=== PATIENT | male | born 1985 | race Hispanic/Latino ===

== ENCOUNTER 2017-11-04 10:49 | Emergency (ER) | payer BC ==
[~2017-11-04] VITALS: Ht 185.4 cm; Wt 90.7 kg
[2017-11-04] MEDS ORDERED: METFORMIN HCL500 MG PO (11:30)
[2017-11-04] MEDS ORDERED: IBUPROFEN400 MG PO (11:56)
[2017-11-04] MEDS ORDERED: ACETAMINOPHEN325 M1 PO (11:59)
== END 2017-11-04 12:56 | disposition home or self-care (01) ==
LOC: FSED 10:49
DX: G89.11 Acute pain due to trauma (principal); S92.242D Displaced fracture of medial cuneiform of left foot, subsequent encounter for fracture with routine healing; Y93.89 Activity, other specified

== ENCOUNTER 2018-06-14 14:29 | Emergency (ER) | payer BC ==
[~2018-06-14] VITALS: Ht 185.4 cm; Wt 90.7 kg
[~2018-06-14 14:29] MED LIST: ACETAMINOPHEN325 M1 PO; IBUPROFEN400 MG PO; METFORMIN HCL500 MG PO
--- NOTE | 2018-06-14 16:50 | Diagnostic Imaging Report ---
LEFT ELBOW X-RAY - 3 VIEWS HISTORY: \S\heard pop nad cant move \[id number] \[id number] COMPARISON: None available. FINDINGS: Bones: No acute displaced fracture. Osseous alignment is within normal limits. Joints: The joint spaces are well-maintained. Soft tissues: The soft tissues appear unremarkable. IMPRESSION: No acute radiographic abnormality. Signed by: Dr. Kimberley Phoenix M.D. on 06/14/2018 4:47 PM
--- NOTE | 2018-06-14 16:51 | Diagnostic Imaging Report ---
LEFT SHOULDER X-RAY - 2 VIEWS HISTORY: \S\heard pop nad cant move \[id number] \S\[id number] COMPARISON: None available. FINDINGS: Bones: No acute displaced fracture. Osseous alignment is within normal limits. Joints: The joint spaces are well-maintained. Soft tissues: The soft tissues appear unremarkable. IMPRESSION: No acute radiographic abnormality. Signed by: Dr. Kimberley Phoenix M.D. on 06/14/2018 4:48 PM
[2018-06-14] MEDS ORDERED: DIAZEPAM 5 MG TAB PO STA (18:03)
[2018-06-14] MEDS ORDERED: HYDROCODONE/APAP 10MG-325MG TAB PO ONE (18:15)
== END 2018-06-14 20:00 | disposition home or self-care (01) ==
LOC: ER 14:29
DX: S46.212A Strain of muscle, fascia and tendon of other parts of biceps, left arm, initial encounter (principal); M77.8 Other enthesopathies, not elsewhere classified; W10.8XXA Fall (on) (from) other stairs and steps, initial encounter; Y99.0 Civilian activity done for income or pay
CPT/HCPCS: 99283

== ENCOUNTER 2021-03-02 14:32 | Inpatient (IN) | payer SELFPAY ==
[~2021-03-02] VITALS: Ht 185.4 cm; Wt 86.2 kg
[2021-03-02] MEDS ORDERED: SODIUM CHLORIDE 0.9% 1000ML 1,000 ML IV STA ×2 (14:52)
[2021-03-02] MEDS ORDERED: MORPHINE SULFATE INJ 4 MG/ML INJ 1ML IV STA (14:52)
[2021-03-02] MEDS ORDERED: PANTOPRAZOLE 40 MG 10ML VIAL IV STA (14:52)
[2021-03-02] MEDS ORDERED: ONDANSETRON HCL INJ 2MG/ML 2ML 2 MG/ML VIAL IV ONE (15:00)
[2021-03-02] MEDS ORDERED: IOPAMIDOL 370 MG/ML 200 ML INFUS..BTL INJ ONE (15:17)
[2021-03-02] MEDS ORDERED: SODIUM CHLORIDE 0.9% 50ML 50 ML ONE (15:17)
[2021-03-02] MEDS ORDERED: ONDANSETRON HCL INJ 2MG/ML 2ML 2 MG/ML VIAL ONE (15:29)
[2021-03-02] MEDS ORDERED: MORPHINE SULFATE INJ 4 MG/ML INJ 1ML ONE ×2 (15:29→18:35)
[2021-03-02] MEDS ORDERED: SODIUM CHLORIDE 0.9% 1000ML 2,000 ML ONE (15:29)
[2021-03-02] MEDS ORDERED: PANTOPRAZOLE 40 MG 10ML VIAL ONE (15:29)
[2021-03-02] MEDS: SODIUM CHLORIDE 0.9% 1000ML 1,000 ML IV SCH ×3 (16:30→23:38)
[2021-03-02] MEDS ORDERED: ONDANSETRON HCL INJ 2MG/ML 2ML 2 MG/ML VIAL IV PRN (16:30)
[2021-03-02] MEDS ORDERED: ZOLPIDEM TARTRATE 5 MG TAB PO PRN (16:30)
[2021-03-02] MEDS ORDERED: DIPHENHYDRAMINE HCL INJ 50 MG/ML VIAL IV PRN (16:30)
[2021-03-02] MEDS ORDERED: ENALAPRILAT IV INJ 1.25 MG/ML VIAL IV PRN (16:30)
[2021-03-02] MEDS ORDERED: FAMOTIDINE 20 MG/2 ML VIAL IV SCH (17:00)
[2021-03-02] MEDS: MORPHINE SULFATE INJ 4 MG/ML INJ 1ML IV PRN ×2 (18:28→22:30)
[2021-03-02 18:55] VITALS: BP 153/99
[2021-03-02 19:45] VITALS: BP 153/99
[2021-03-02] MEDS ORDERED: KETOROLAC TROMETHAMINE 30 MG/ML VIAL IV ONE (19:45)
[2021-03-02 20:41] VITALS: BP 143/99
[2021-03-02] MEDS: FAMOTIDINE 20 MG/2 ML VIAL IV SCH (21:30)
[2021-03-02 22:20] VITALS: BP 143/99
[2021-03-03] VITALS (8 sets, daily range): BP systolic 115–140; BP diastolic 69–102
[2021-03-03] MEDS: KETOROLAC TROMETHAMINE 30 MG/ML VIAL IV SCH ×5 (00:07→23:55)
[2021-03-03] MEDS ORDERED: ZOLPIDEM TARTRATE 5 MG TAB PO PRN (00:45)
[2021-03-03] MEDS ORDERED: SIMETHICONE 80 MG CHEW PO PRN (00:45)
[2021-03-03] MEDS ORDERED: ACETAMINOPHEN 325 MG TAB PO PRN (00:45)
[2021-03-03] MEDS ORDERED: HYDRALAZINE HCL 20 MG/ML VIAL IV PRN (00:45)
[2021-03-03] MEDS ORDERED: POLYETHYLENE GLYCOL 3350 17 GM PACK PO PRN (00:45)
[2021-03-03] MEDS ORDERED: POTASSIUM CHLORIDE 20 MEQ TAB CR PO PRN (00:45)
[2021-03-03] MEDS ORDERED: ALBUTEROL/IPRATROPIUM 3 ML NEB NEB PRN (00:45)
[2021-03-03] MEDS ORDERED: DEXTROSE 50% SYRINGE 50 ML IV PRN (00:45)
[2021-03-03] MEDS ORDERED: MELATONIN 5 MG TABLET PO PRN (01:00)
[2021-03-03] MEDS: PANTOPRAZOLE 40 MG 10ML VIAL IV SCH ×3 (01:45→23:55)
[2021-03-03] MEDS: MORPHINE SULFATE INJ 4 MG/ML INJ 1ML IV PRN ×4 (02:30→20:14)
[2021-03-03] MEDS: SODIUM CHLORIDE 0.9% 1000ML 1,000 ML IV SCH ×3 (02:30→10:26)
[2021-03-03] MEDS ORDERED: MORPHINE SULFATE INJ 2 MG/ML SYR ONE (08:02)
[2021-03-03] MEDS: ONDANSETRON HCL INJ 2MG/ML 2ML 2 MG/ML VIAL IV PRN ×3 (08:10→20:14)
[2021-03-03] MEDS: FAMOTIDINE 20 MG/2 ML VIAL IV SCH ×2 (08:13→21:30)
[2021-03-03 09:26] LABS: BASOPHILS % 0.2 % (0.0-1.0); EOSINOPHILS # (AUTO) 0.1 (0.0-0.4); EOSINOPHILS % 0.4 % (0.0-6.0); HEMATOCRIT 45.2 % (38.2-49.6); HEMOGLOBIN 14.9 g/dL (14.0-18.0); LYMPHOCYTES % 12.3 % (18.0-39.1); MEAN CORPUSCULAR HEMOGLOBIN 30.3 pg (28-32); MEAN CORPUSCULAR VOLUME 92.1 fL (81-99); MONOCYTES # (AUTO) 1.3 (0.2-0.8); MONOCYTES % 7.7 % (4.4-11.3); NEUTROPHILS # (AUTO) 13.1 (2.1-6.9); NEUTROPHILS % 78.6 % (38.7-80.0); PLATELET COUNT 273 x10e3/uL (140-360); RED BLOOD COUNT 4.91 x10e6/uL (4.3-5.7); RED CELL DISTRIBUTION WIDTH 15.5 % (11.7-14.4)
[2021-03-03 09:53] LABS: ALANINE AMINOTRANSFERASE 30 IU/L (0-55); ALKALINE PHOSPHATASE 41 IU/L (40-150); AMYLASE 61 U/L (25-125); ANION GAP 11.1 mmol/L (8-16); BLOOD UREA NITROGEN 13 mg/dL (7-26); BUN/CREATININE RATIO 14 (6-25); CALCIUM 7.5 mg/dL (8.4-10.2); CARBON DIOXIDE 25 mmol/L (22-29); CHLORIDE 103 mmol/L (98-107); CREATININE, SERUM 0.96 mg/dL (0.72-1.25); EST GLOMERULAR FILTRATION RATE > 60 ML/MIN (60-); GLUCOSE 110 mg/dL (74-118); LIPASE 49 U/L (8-78); POTASSIUM 4.1 mmol/L (3.5-5.1); SODIUM 135 mmol/L (136-145)
[2021-03-03] MEDS: DEXTROSE 5%/0.9% SOD CHL 1,000 ML IV SCH ×3 (13:30→21:30)
[2021-03-03] MEDS: ENOXAPARIN SOD INJ 40 MG/0.4 ML SYR SC SCH (17:00)
[2021-03-04] VITALS (8 sets, daily range): BP systolic 103–128; BP diastolic 65–99
[2021-03-04] MEDS: MORPHINE SULFATE INJ 4 MG/ML INJ 1ML IV PRN ×5 (00:43→18:02)
[2021-03-04] MEDS: ONDANSETRON HCL INJ 2MG/ML 2ML 2 MG/ML VIAL IV PRN ×2 (00:45→23:35)
[2021-03-04] MEDS: DEXTROSE 5%/0.9% SOD CHL 1,000 ML IV SCH ×3 (03:34→18:02)
[2021-03-04 05:42] LABS: BASOPHILS % 0.2 % (0.0-1.0); EOSINOPHILS # (AUTO) 0.1 (0.0-0.4); EOSINOPHILS % 0.8 % (0.0-6.0); HEMATOCRIT 43.7 % (38.2-49.6); HEMOGLOBIN 14.2 g/dL (14.0-18.0); LYMPHOCYTES # (AUTO) 1.4 (1.0-3.2); MEAN CORPUSCULAR HEMOGLOBIN 29.5 pg (28-32); MEAN CORPUSCULAR HGB CONC 32.5 g/dL (31-35); MEAN CORPUSCULAR VOLUME 90.9 fL (81-99); MONOCYTES # (AUTO) 0.8 (0.2-0.8); MONOCYTES % 7.8 % (4.4-11.3); NEUTROPHILS # (AUTO) 7.6 (2.1-6.9); NEUTROPHILS % 76.3 % (38.7-80.0); PLATELET COUNT 248 x10e3/uL (140-360); RED BLOOD COUNT 4.81 x10e6/uL (4.3-5.7); RED CELL DISTRIBUTION WIDTH 15.6 % (11.7-14.4)
[2021-03-04] MEDS: KETOROLAC TROMETHAMINE 30 MG/ML VIAL IV SCH ×4 (05:58→23:24)
[2021-03-04 06:21] LABS: ALANINE AMINOTRANSFERASE 22 IU/L (0-55); ALBUMIN 2.6 g/dL (3.5-5.0); ALBUMIN/GLOBULIN RATIO 0.9 (0.8-2.0); ALKALINE PHOSPHATASE 40 IU/L (40-150); ANION GAP 10.3 mmol/L (8-16); BLOOD UREA NITROGEN 9 mg/dL (7-26); BUN/CREATININE RATIO 10 (6-25); CALCIUM 7.1 mg/dL (8.4-10.2); CARBON DIOXIDE 25 mmol/L (22-29); CHLORIDE 105 mmol/L (98-107); CHOL/HDL RATIO 13.9 (3.9-4.7); CHOLESTEROL 153 MD/DL (0-199); EST GLOMERULAR FILTRATION RATE > 60 ML/MIN (60-); GLUCOSE 168 mg/dL (74-118); HDL CHOLESTEROL 11 MG/DL (40-60); LDL CHOLESTEROL 112 MG/DL (60-130); MAGNESIUM 1.9 MG/DL (1.3-2.1); POTASSIUM 4.3 mmol/L (3.5-5.1); SODIUM 136 mmol/L (136-145); TRIGLYCERIDES 152 MG/DL (0-149)
[2021-03-04] MEDS: FAMOTIDINE 20 MG/2 ML VIAL IV SCH ×3 (08:10→21:03)
[2021-03-04] MEDS: PANTOPRAZOLE 40 MG 10ML VIAL IV SCH (11:50)
[2021-03-04] MEDS: ENOXAPARIN SOD INJ 40 MG/0.4 ML SYR SC SCH (16:09)
[2021-03-04] MEDS ORDERED: MORPHINE SULFATE INJ 2 MG/ML SYR IV PRN (18:45)
[2021-03-05] MEDS: PANTOPRAZOLE 40 MG 10ML VIAL IV SCH ×2 (00:17→11:21)
[2021-03-05 01:16] VITALS: BP 127/80
[2021-03-05] MEDS: DEXTROSE 5%/0.9% SOD CHL 1,000 ML IV SCH ×2 (02:32→05:37)
[2021-03-05 05:28] VITALS: BP 129/78
[2021-03-05 05:36] LABS: AMYLASE 41 U/L (25-125); LIPASE 37 U/L (8-78)
[2021-03-05] MEDS: KETOROLAC TROMETHAMINE 30 MG/ML VIAL IV SCH ×2 (06:00→11:22)
[2021-03-05 07:50] VITALS: BP 127/92
[2021-03-05] MEDS: FAMOTIDINE 20 MG/2 ML VIAL IV SCH (07:51)
[2021-03-05 09:03] VITALS: BP 127/92
== END 2021-03-05 13:51 | disposition home or self-care (01) | DRG 440 ==
LOC: FSED 14:56 → ERHOLD 17:46 → MED/SURG 18:44
PROVIDERS: ADMIT Internal Medicine; ATTEND Internal Medicine
DX: K85.90 Acute pancreatitis without necrosis or infection, unspecified (principal); E11.9 Type 2 diabetes mellitus without complications; F10.10 Alcohol abuse, uncomplicated; Z87.891 Personal history of nicotine dependence; Z90.49 Acquired absence of other specified parts of digestive tract; Z83.3 Family history of diabetes mellitus; Z82.49 Family history of ischemic heart disease and other diseases of the circulatory system; Z20.822 Contact with and (suspected) exposure to COVID-19; Z79.84 Long term (current) use of oral hypoglycemic drugs
CPT/HCPCS: 36415; 74177; 80053; 80061; 80329; 82150; 82948; 83036; 83690; 83735; 85025; 99284; J1650; J1885; J2270; J2405; J7030; J7042; Q9967; U0002

== ENCOUNTER 2021-05-12 22:46 | Emergency (ER) | payer BC, OTHER ==
[~2021-05-12] VITALS: Ht 185.4 cm; Wt 86.2 kg
[2021-05-12] MEDS ORDERED: SODIUM CHLORIDE 0.9% 1000ML 1,000 ML IV ONE (23:00)
[2021-05-12 23:20] LABS: BASOPHILS % 0.4 % (0.0-1.0); EOSINOPHILS # (AUTO) 0.1 (0.0-0.4); EOSINOPHILS % 0.9 % (0.0-6.0); HEMATOCRIT 50.6 % (38.2-49.6); HEMOGLOBIN 16.5 g/dL (14.0-18.0); LYMPHOCYTES # (AUTO) 2.1 (1.0-3.2); MEAN CORPUSCULAR HEMOGLOBIN 29.2 pg (28-32); MEAN CORPUSCULAR HGB CONC 32.6 g/dL (31-35); MEAN CORPUSCULAR VOLUME 89.6 fL (81-99); MONOCYTES # (AUTO) 1.1 (0.2-0.8); MONOCYTES % 10.2 % (4.4-11.3); NEUTROPHILS # (AUTO) 7.1 (2.1-6.9); NEUTROPHILS % 67.6 % (38.7-80.0); PLATELET COUNT 306 x10e3/uL (140-360); RED BLOOD COUNT 5.65 x10e6/uL (4.3-5.7); RED CELL DISTRIBUTION WIDTH 14.4 % (11.7-14.4)
[2021-05-12 23:24] LABS: CLARITY,URINE CLEAR (CLEAR); COLOR,URINE YELLOW (YELLOW); KETONES,URINE NEGATIVE (NEGATIVE); LEUKOCYTE ESTERASE ,URINE NEGATIVE (NEGATIVE); NITRITE,URINE NEGATIVE (NEGATIVE); PROTEIN,URINE DIPSTICK 1+ (NEGATIVE); URINE UROBILINOGEN 0.2 mg/dL (0.2 - 1)
[2021-05-12 23:25] LABS: BACTERIA,URINE FEW /HPF; EPITHELIAL CELLS,URINE FEW /LPF; RBC,URINE 0-5 /HPF (0-5); WBC,URINE (MAN) 0-5 /HPF (0-5)
[2021-05-12 23:26] LABS: AMPHETAMINES SCREEN,URINE POSITIVE (NEGATIVE); PHENCYCLIDINE SCREEN,URINE NEGATIVE (NEGATIVE)
[2021-05-12 23:27] LABS: BENZODIAZEPINES SCREEN,URINE NEGATIVE (NEGATIVE)
[2021-05-12 23:37] LABS: ALBUMIN/GLOBULIN RATIO 1.4 (0.8-2.0); CREATININE, SERUM 1.67 mg/dL (0.72-1.25)
[2021-05-12 23:58] LABS: MUCUS,URINE MANY (RARE)
[2021-05-13] MEDS ORDERED: SODIUM CHLORIDE 0.9% 50ML 50 ML ONE (01:45)
[2021-05-13] MEDS ORDERED: IOPAMIDOL 370 MG/ML 200 ML INFUS..BTL INJ ONE (01:45)
[2021-05-13] MEDS ORDERED: SODIUM CHLORIDE 0.9% 1000ML 1,000 ML IV ONE (02:00)
[2021-05-13] MEDS ORDERED: SODIUM CHLORIDE 0.9% 1000ML 1,000 ML ONE (02:07)
== END 2021-05-13 02:58 | disposition home or self-care (01) ==
LOC: ER 22:55
DX: S50.02XA Contusion of left elbow, initial encounter (principal); R42 Dizziness and giddiness; W01.0XXA Fall on same level from slipping, tripping and stumbling without subsequent striking against object, initial encounter; Y93.01 Activity, walking, marching and hiking; Y92.34 Swimming pool (public) as the place of occurrence of the external cause; E11.65 Type 2 diabetes mellitus with hyperglycemia; R94.31 Abnormal electrocardiogram [ECG] [EKG]; Z87.19 Personal history of other diseases of the digestive system; F17.210 Nicotine dependence, cigarettes, uncomplicated
CPT/HCPCS: 36415; 70496; 71045; 72125; 73080; 73090; 73110; 80053; 80307; 80320; 81001; 82550; 82553; 82948; 84484; 85025; 93005; 99284; J7030 ×2; Q9967

== ENCOUNTER 2024-10-08 16:24 | Inpatient (IN) | payer OTHER ==
[~2024-10-08] VITALS: Ht 185.4 cm; Wt 86.2 kg
[2024-10-08] MEDS: KETOROLAC TROMETHAMINE 30 MG/ML VIAL IV STA (17:20)
[2024-10-08] MEDS: ONDANSETRON HCL INJ 2MG/ML 2ML 2 MG/ML VIAL IV STA (17:20)
[2024-10-08] MEDS: SODIUM CHLORIDE 0.9% 1000ML 1,000 ML IV SCH ×3 (17:21→19:49)
[2024-10-08] MEDS ORDERED: PROMETHAZINE HCL (IM) 25 MG/ML VIAL IM ONE (18:51)
[2024-10-08] MEDS ORDERED: HYDROMORPHONE 1MG/1ML INJ IV PRN (19:45)
[2024-10-08] MEDS: FENTANYL CITRATE/PF 100MCG/2 ML INJ IV ONE (19:48)
[2024-10-08] MEDS: PROMETHAZINE 25MG/ NS 50ML (IV) IV ONE (19:48)
[2024-10-08 19:59] VITALS: PULSE 51; RESP 18; TEMP 97.7
[2024-10-08 20:00] VITALS: BP 171/81; O2SAT 99
[2024-10-08] MEDS ORDERED: ACETAMINOPHEN 325 MG TAB PO PRN (21:30)
[2024-10-08] MEDS ORDERED: DEXTROSE 50% SYRINGE 50 ML IV PRN (21:45)
[2024-10-08] MEDS: HYDROMORPHONE 1MG/1ML INJ IV PRN (22:35)
[2024-10-08] MEDS: DEXTROSE 5%/0.9% SOD CHL 1,000 ML IV ONE (22:35)
[2024-10-08] MEDS: FAMOTIDINE 20 MG/2 ML VIAL IV STA (22:39)
[2024-10-08] MEDS: ONDANSETRON HCL INJ 2MG/ML 2ML 2 MG/ML VIAL IV PRN (22:39)
[2024-10-08] MEDS ORDERED: PROMETHAZINE HCL (IM) 25 MG/ML VIAL IM PRN (23:00)
[2024-10-08 23:33] VITALS: BP 183/106; PULSE 45; RESP 16; TEMP 98.2; O2SAT 97
[2024-10-08] MEDS: HYDRALAZINE HCL 20 MG/ML VIAL IV PRN (23:44)
[2024-10-09] VITALS (7 sets, daily range): BP systolic 140–178; BP diastolic 85–100; PULSE 44–108; RESP 18–20; TEMP 98.2–99; O2SAT 97–98
[2024-10-09] MEDS: DEXTROSE 5%/0.9% SOD CHL 1,000 ML IV SCH (06:00)
[2024-10-09] MEDS: INSULIN LISPRO 100 UNIT/1 ML 3ML VIAL SQ SCH (08:03)
[2024-10-09 08:07] LABS: BASOPHILS % 0.2 % (0.0-1.0); EOSINOPHILS # (AUTO) 0.1 (0.0-0.4); EOSINOPHILS % 0.6 % (0.0-6.0); HEMATOCRIT 49.5 % (38.2-49.6); HEMOGLOBIN 16.4 g/dL (14.0-18.0); LYMPHOCYTES # (AUTO) 0.9 (1.0-3.2); LYMPHOCYTES % 5.1 % (18.0-39.1); MEAN CORPUSCULAR HEMOGLOBIN 32.9 pg (28-32); MEAN CORPUSCULAR HGB CONC 33.1 g/dL (31-35); MEAN CORPUSCULAR VOLUME 99.4 fL (81-99); MONOCYTES # (AUTO) 1.3 (0.2-0.8); MONOCYTES % 6.8 % (4.4-11.3); NEUTROPHILS # (AUTO) 15.9 (2.1-6.9); NEUTROPHILS % 86.9 % (38.7-80.0); PLATELET COUNT 189 x10e3/uL (140-360); RED BLOOD COUNT 4.98 x10e6/uL (4.3-5.7); RED CELL DISTRIBUTION WIDTH 12.5 % (11.7-14.4); WHITE BLOOD COUNT 18.29 x10e3/uL (4.8-10.8)
[2024-10-09] MEDS: FAMOTIDINE 20 MG/2 ML VIAL IV SCH (08:13)
[2024-10-09 08:33] LABS: ALBUMIN 3.9 g/dL (3.5-5.0); ANION GAP 17.9 mmol/L (8-16); BILIRUBIN,DIRECT 0.4 mg/dL (0.0-0.5); CREATININE, SERUM 1.1 mg/dL (0.72-1.25); POTASSIUM 3.9 mmol/L (3.5-5.1); TOTAL PROTEIN 6.9 g/dL (6.5-8.1)
[2024-10-09] MEDS: LACTATED RINGER'S 1,000 ML INJ SCH (13:38)
[2024-10-09] MEDS: LORAZEPAM INJ 2 MG/ML VIAL IV PRN (16:10)
[2024-10-09] MEDS: ENOXAPARIN SOD INJ 40 MG/0.4 ML SYR SC SCH (20:51)
[2024-10-10 03:30] VITALS: BP 151/96; PULSE 111; RESP 20; TEMP 99.4; O2SAT 96
[2024-10-10 07:59] VITALS: BP 154/94; PULSE 54; RESP 18; TEMP 99.2; O2SAT 95
[2024-10-10 08:00] VITALS: BP 154/94; PULSE 54; RESP 18; TEMP 99.2; O2SAT 95
[2024-10-10] MEDS: KETOROLAC TROMETHAMINE 30 MG/ML VIAL IV ONE (11:46)
[2024-10-10 12:00] VITALS: BP 150/107; PULSE 77; RESP 20; TEMP 98.6; O2SAT 97
[2024-10-10 14:04] LABS: BASOPHILS % 0.2 % (0.0-1.0); EOSINOPHILS % 0.1 % (0.0-6.0); HEMATOCRIT 45.2 % (38.2-49.6); HEMOGLOBIN 14.8 g/dL (14.0-18.0); LYMPHOCYTES # (AUTO) 1.3 (1.0-3.2); LYMPHOCYTES % 8.4 % (18.0-39.1); MEAN CORPUSCULAR HEMOGLOBIN 32.7 pg (28-32); MEAN CORPUSCULAR HGB CONC 32.7 g/dL (31-35); MONOCYTES # (AUTO) 1.3 (0.2-0.8); MONOCYTES % 8.4 % (4.4-11.3); NEUTROPHILS # (AUTO) 12.7 (2.1-6.9); NEUTROPHILS % 82.6 % (38.7-80.0); PLATELET COUNT 161 x10e3/uL (140-360); RED BLOOD COUNT 4.52 x10e6/uL (4.3-5.7); RED CELL DISTRIBUTION WIDTH 12.6 % (11.7-14.4); WHITE BLOOD COUNT 15.32 x10e3/uL (4.8-10.8)
[2024-10-10] MEDS: BISACODYL 10 MG SUPP PR ONE (14:05)
[2024-10-10] MEDS: HYDROMORPHONE 2MG/ML IV PRN (14:05)
[2024-10-10 16:33] VITALS: BP 153/98; PULSE 89; RESP 18; TEMP 98.2; O2SAT 99
[2024-10-10 20:42] VITALS: BP 157/103; PULSE 82; RESP 20; TEMP 97.7; O2SAT 96
[2024-10-11] VITALS (8 sets, daily range): BP systolic 145–168; BP diastolic 91–108; PULSE 71–98; RESP 16–21; TEMP 97.6–98.9; O2SAT 95–99
[2024-10-11 01:10] LABS: BASOPHILS % 0.2 % (0.0-1.0); EOSINOPHILS % 0.1 % (0.0-6.0); HEMATOCRIT 42.5 % (38.2-49.6); HEMOGLOBIN 14.7 g/dL (14.0-18.0); LYMPHOCYTES # (AUTO) 1.1 (1.0-3.2); LYMPHOCYTES % 8.4 % (18.0-39.1); MEAN CORPUSCULAR HEMOGLOBIN 33.2 pg (28-32); MEAN CORPUSCULAR HGB CONC 34.6 g/dL (31-35); MONOCYTES % 7.8 % (4.4-11.3); NEUTROPHILS # (AUTO) 11.1 (2.1-6.9); NEUTROPHILS % 83.1 % (38.7-80.0); PLATELET COUNT 168 x10e3/uL (140-360); RED BLOOD COUNT 4.43 x10e6/uL (4.3-5.7); RED CELL DISTRIBUTION WIDTH 12.6 % (11.7-14.4); WHITE BLOOD COUNT 13.37 x10e3/uL (4.8-10.8)
[2024-10-11 01:40] LABS: ALBUMIN 3.4 g/dL (3.5-5.0); ANION GAP 16.4 mmol/L (8-16); BILIRUBIN,TOTAL 1.2 mg/dL (0.2-1.2); CALCIUM 9.7 mg/dL (8.4-10.2); CREATININE, SERUM 0.9 mg/dL (0.72-1.25); TOTAL PROTEIN 6.9 g/dL (6.5-8.1)
[2024-10-11 01:52] LABS: MEAN CORPUSCULAR VOLUME 95.9 fL (81-99); POTASSIUM 3.4 mmol/L (3.5-5.1)
[2024-10-11] MEDS ORDERED: IOPAMIDOL 370 MG/ML 100 ML INFUS..BTL INJ ONE (04:24)
[2024-10-11 05:59] LABS: BASOPHILS % 0.3 % (0.0-1.0); EOSINOPHILS % 0.2 % (0.0-6.0); HEMATOCRIT 41.6 % (38.2-49.6); HEMOGLOBIN 14.5 g/dL (14.0-18.0); LYMPHOCYTES # (AUTO) 1.2 (1.0-3.2); LYMPHOCYTES % 9.7 % (18.0-39.1); MEAN CORPUSCULAR HGB CONC 34.9 g/dL (31-35); MEAN CORPUSCULAR VOLUME 94.5 fL (81-99); MONOCYTES % 7.5 % (4.4-11.3); NEUTROPHILS # (AUTO) 10.3 (2.1-6.9); NEUTROPHILS % 81.9 % (38.7-80.0); PLATELET COUNT 172 x10e3/uL (140-360); RED CELL DISTRIBUTION WIDTH 12.4 % (11.7-14.4); WHITE BLOOD COUNT 12.59 x10e3/uL (4.8-10.8)
[2024-10-11 06:40] LABS: ALBUMIN 3.4 g/dL (3.5-5.0); ANION GAP 16.4 mmol/L (8-16); BILIRUBIN,TOTAL 1.2 mg/dL (0.2-1.2); CALCIUM 9.6 mg/dL (8.4-10.2); CREATININE, SERUM 0.87 mg/dL (0.72-1.25); TOTAL PROTEIN 6.9 g/dL (6.5-8.1)
[2024-10-11 06:43] LABS: POTASSIUM 3.4 mmol/L (3.5-5.1)
[2024-10-11] MEDS: SODIUM CHLORIDE 0.9% 1000ML 1,000 ML IV SCH (10:56)
[2024-10-11] MEDS: KETOROLAC TROMETHAMINE 30 MG/ML VIAL IV PRN (12:09)
[2024-10-11] MEDS: POTASSIUM CHLORIDE 10MEQ/100ML 100 ML INJ ONE (12:48)
[2024-10-12] VITALS: BP 150/93; PULSE 80; RESP 19; TEMP 98.2; O2SAT 97
[2024-10-12 04:00] VITALS: BP 149/102; PULSE 73; RESP 19; TEMP 98.4; O2SAT 97
[2024-10-12 05:25] LABS: BASOPHILS % 0.3 % (0.0-1.0); EOSINOPHILS # (AUTO) 0.1 (0.0-0.4); EOSINOPHILS % 1.2 % (0.0-6.0); HEMATOCRIT 40.2 % (38.2-49.6); HEMOGLOBIN 14.1 g/dL (14.0-18.0); LYMPHOCYTES # (AUTO) 1.4 (1.0-3.2); LYMPHOCYTES % 15.7 % (18.0-39.1); MEAN CORPUSCULAR HEMOGLOBIN 32.9 pg (28-32); MEAN CORPUSCULAR HGB CONC 35.1 g/dL (31-35); MEAN CORPUSCULAR VOLUME 93.7 fL (81-99); MONOCYTES # (AUTO) 0.9 (0.2-0.8); MONOCYTES % 10.2 % (4.4-11.3); NEUTROPHILS # (AUTO) 6.3 (2.1-6.9); PLATELET COUNT 194 x10e3/uL (140-360); RED BLOOD COUNT 4.29 x10e6/uL (4.3-5.7); RED CELL DISTRIBUTION WIDTH 12.2 % (11.7-14.4); WHITE BLOOD COUNT 8.69 x10e3/uL (4.8-10.8)
[2024-10-12 05:52] LABS: ANION GAP 15.1 mmol/L (8-16); CALCIUM 9.4 mg/dL (8.4-10.2); CREATININE, SERUM 0.86 mg/dL (0.72-1.25)
[2024-10-12 06:03] LABS: POTASSIUM 3.1 mmol/L (3.5-5.1)
[2024-10-12 08:00] VITALS: BP 149/84; PULSE 83; RESP 18; TEMP 98.1; O2SAT 98
[2024-10-12] MEDS ORDERED: HYDROMORPHONE 2MG/ML IV PRN (11:15)
[2024-10-12 12:10] VITALS: BP 159/100; PULSE 74; RESP 19; TEMP 98.2; O2SAT 99
[2024-10-12] MEDS: POTASSIUM CHLORIDE 10MEQ EA PO ONE (15:19)
[2024-10-12] MEDS: HYDROMORPHONE 1MG/1ML INJ IV PRN (15:19)
[2024-10-12 16:00] VITALS: BP 150/100; PULSE 77; RESP 19; TEMP 98.5; O2SAT 98
[2024-10-12] MEDS: HYDROCODONE/APAP 5MG-325MG TAB PO PRN (17:24)
[2024-10-12 20:00] VITALS: BP 172/102; PULSE 67; RESP 20; TEMP 98; O2SAT 98
[2024-10-13] VITALS (7 sets, daily range): BP systolic 133–174; BP diastolic 95–110; PULSE 45–82; RESP 18–20; TEMP 98.4–98.9; O2SAT 99–100
[2024-10-13 05:48] LABS: ALBUMIN 3.4 g/dL (3.5-5.0); ANION GAP 14.8 mmol/L (8-16); BILIRUBIN,TOTAL 0.6 mg/dL (0.2-1.2); CALCIUM 9.4 mg/dL (8.4-10.2); CREATININE, SERUM 1.06 mg/dL (0.72-1.25); POTASSIUM 3.8 mmol/L (3.5-5.1); TOTAL PROTEIN 6.9 g/dL (6.5-8.1)
[2024-10-13] MEDS: LOSARTAN POTASSIUM 100 MG TAB PO SCH (13:40)
[2024-10-13] MEDS ORDERED: VITAMIN D250 MCG PO (15:10)
[2024-10-13] MEDS: HYDROMORPHONE 1MG/1ML INJ IV PRN (16:41)
[2024-10-14 01:18] VITALS: BP 156/106; PULSE 71; RESP 18; TEMP 98.2; O2SAT 97
[2024-10-14 01:19] VITALS: BP 156/106; PULSE 71; RESP 18; TEMP 98.2; O2SAT 97
[2024-10-14 04:48] LABS: BASOPHILS % 0.5 % (0.0-1.0); EOSINOPHILS # (AUTO) 0.2 (0.0-0.4); EOSINOPHILS % 2.4 % (0.0-6.0); HEMATOCRIT 41.7 % (38.2-49.6); HEMOGLOBIN 14.6 g/dL (14.0-18.0); LYMPHOCYTES # (AUTO) 1.7 (1.0-3.2); LYMPHOCYTES % 26.9 % (18.0-39.1); MEAN CORPUSCULAR VOLUME 94.3 fL (81-99); MONOCYTES # (AUTO) 0.8 (0.2-0.8); MONOCYTES % 12.6 % (4.4-11.3); NEUTROPHILS # (AUTO) 3.6 (2.1-6.9); NEUTROPHILS % 56.8 % (38.7-80.0); PLATELET COUNT 244 x10e3/uL (140-360); RED BLOOD COUNT 4.42 x10e6/uL (4.3-5.7); RED CELL DISTRIBUTION WIDTH 12.4 % (11.7-14.4); WHITE BLOOD COUNT 6.25 x10e3/uL (4.8-10.8)
[2024-10-14 05:08] LABS: ALBUMIN 3.5 g/dL (3.5-5.0); ALBUMIN/GLOBULIN RATIO 1.1 (0.8-2.0); ANION GAP 14.5 mmol/L (8-16); BILIRUBIN,TOTAL 0.5 mg/dL (0.2-1.2); CALCIUM 9.3 mg/dL (8.4-10.2); CREATININE, SERUM 0.96 mg/dL (0.72-1.25); POTASSIUM 3.5 mmol/L (3.5-5.1); TOTAL PROTEIN 6.8 g/dL (6.5-8.1)
[2024-10-14 08:00] VITALS: BP 152/108; PULSE 74; RESP 16; RESP 18; TEMP 97.6; O2SAT 98
[2024-10-14 11:00] VITALS: BP 145/105; PULSE 69; RESP 16; TEMP 97.2; O2SAT 98
[2024-10-14] MEDS ORDERED: COZAAR100 MG PO (11:12)
[2024-10-14] MEDS ORDERED: HYDROCODON-ACE1 EA11 PO (12:04)
[2024-10-14 12:45] VITALS: BP 154/94; RESP 16
[2024-10-14] MEDS ORDERED: LOSARTAN POTASS25 MG PO (18:45)
== END 2024-10-14 16:10 | disposition home or self-care (01) | DRG 439 ==
LOC: FSED 16:58 → ERHOLD 19:44 → MED/SURG 20:50
PROVIDERS: ADMIT Internal Medicine; ATTEND Internal Medicine
PROC: HZ2ZZZZ Detoxification Services for Substance Abuse Treatment (ICD-10-PCS; principal; 2024-10-09)
DX: K85.20 Alcohol induced acute pancreatitis without necrosis or infection (principal); E87.1 Hypo-osmolality and hyponatremia; F10.230 Alcohol dependence with withdrawal, uncomplicated; K86.0 Alcohol-induced chronic pancreatitis; I10 Essential (primary) hypertension; E11.65 Type 2 diabetes mellitus with hyperglycemia; E87.6 Hypokalemia; R41.0 Disorientation, unspecified; F41.9 Anxiety disorder, unspecified; F32.A Depression, unspecified; Z82.49 Family history of ischemic heart disease and other diseases of the circulatory system; Z83.3 Family history of diabetes mellitus; Z87.891 Personal history of nicotine dependence
CPT/HCPCS: 36415; 70450; 74176; 74178; 80048; 80053; 80076; 80307; 81003; 82553; 82948; 83690; 84484; 85025; 99284; J0360; J1171; J1650; J1885; J2060; J2405; J2550; J3480; J7030; J7042; Q9967